=== PATIENT | female | born 1950 | race Caucasian/White ===

== ENCOUNTER 2016-09-04 10:23 | Day surgery (SDC) | payer OTHER ==
[~2016-09-04] VITALS: Ht 152.4 cm; Wt 63.3 kg
[~2016-09-04 10:23] MED LIST: AMARYL2 MG PO; AMLODIPINE BESY10 MG PO; AUGMENTIN875 MG PO; BUPROPION HCL150 M2 PO; CATAPRES0.1 MG PO; CATAPRES0.2 MG PO; CILOSTAZOL100 MG PO; CILOSTAZOL50 MG PO; CORTISPORIN EAR10 ML RIGHT EAR; DEPRIZINE15 MG/1 ML PO; DULERA 100 MCG/13 GM IH; FUROSEMIDE40 MG PO; GABAPENTIN300 MG PO; GABAPENTIN600 MG PO; LASIX20 MG PO; LEVOXYL50 MCG PO; LEVOXYL75 MCG PO; METFORMIN HCL500 M1 PO; METHADONE10 MG PO; METOCLOPRAMIDE H5 MG PO; MICRO-K10 ME2 PO; MICROZIDE12.5 M1 PO; MORPHINE SULFAT15 M1 PO; NASONEX17 GM BOTH NARES; OMEPRAZOLE40 M1 PO; PLETAL100 MG PO; PROVENTIL,2.5 MG/3 M IH; PROVENTIL,VENTOL2 MG PO; SEROQUEL12.5 MG PO; TIZANIDINE HCL2 M1 PO; ULTRAM50 MG PO; VITAMIN D2000 UNIT PO; ZESTORETIC,P1 TABLE1 PO
[2016-09-04 12:57] LABS: POINT-OF-CARE METER ID UU14174212
== END 2016-09-04 13:50 | disposition home or self-care (01) ==
LOC: PAIN 10:23 → SDC 11:15 → PAIN 11:15
PROVIDERS: Anesthesiology Pain Medicine
PROC: 3E0U33Z Introduction of Anti-inflammatory into Joints, Percutaneous Approach (ICD-10-PCS; principal; 2016-09-04)
DX: M16.11 Unilateral primary osteoarthritis, right hip (principal); I10 Essential (primary) hypertension; F41.1 Generalized anxiety disorder; J44.9 Chronic obstructive pulmonary disease, unspecified; K21.9 Gastro-esophageal reflux disease without esophagitis; E11.9 Type 2 diabetes mellitus without complications; E03.9 Hypothyroidism, unspecified
CPT/HCPCS: 82948; J1030; J3010; S0020